=== PATIENT | female | born 1940 | race Caucasian/White ===

== ENCOUNTER 2019-05-18 17:37 | Observation (INO) | payer MEDICARE ==
[~2019-05-18] VITALS: Ht 162.6 cm; Wt 60.0 kg
[2019-05-18] MEDS ORDERED: TOPROL XL50 MG PO (17:53)
[2019-05-18] MEDS ORDERED: ALENDRONAT70 MG/75 M PO (17:54)
[2019-05-18] MEDS ORDERED: CELEXA20 MG PO (17:55)
[2019-05-18] MEDS ORDERED: ASPIRIN EC81 M1 PO (17:55)
[2019-05-18] MEDS ORDERED: SYNTHROID75 MCG PO (17:56)
[2019-05-18] MEDS ORDERED: DEXILANT60 MG (17:56)
[2019-05-18] MEDS ORDERED: PLAVIX75 MG PO (17:56)
[2019-05-18] MEDS ORDERED: COZAAR50 MG PO (17:57)
[2019-05-18] MEDS ORDERED: PRAVACHOL20 MG PO (17:58)
[2019-05-18] MEDS ORDERED: RANITIDINE HCL150 M1 PO (17:58)
[2019-05-18] MEDS ORDERED: POTASSIUM99 M1 PO (17:58)
[2019-05-18] MEDS ORDERED: TRAZODONE HCL150 MG PO (18:01)
[2019-05-18 19:02] VITALS: BP 169/73
[2019-05-18 19:06] LABS: BASOPHILS 0.3 % (0-2); HEMATOCRIT 39.1 % (36.0-48.0); IMMATURE GRANULOCYTES 0.3 % (0-5); MCH 28.3 pg (26.0-34.0); MCHC 33.2 g/dL (31.0-37.0); MCV 85.2 fL (80.0-100.0); MEAN PLATELET VOLUME 9.7 fL (7.4-10.4); MONOCYTES 10.6 % (2-11); NEUTROPHILS 60.8 % (40-80); PLATELET COUNT 201 10x3/uL (130-400); RBC 4.59 10x6/uL (4.00-5.40); RDW 13.7 % (11.5-14.5); WBC 7.7 10x3/uL (4.8-10.8)
--- NOTE | 2019-05-18 19:10 | NUR ---
PT PROVIDED SANDWICH BOX AND WATER.
[2019-05-18 19:14] LABS: APTT 29.4 SECONDS (22.8-39.4); INR 1.24 (0.85-1.17); PROTIME 15.1 SECONDS (11.6-15.0)
--- NOTE | 2019-05-18 19:20 | NUR ---
ORDERED ASA NOT GIVEN PER EDP VERBAL ORDER.
[2019-05-18 19:21] LABS: ALBUMIN 3.5 g/dL (3.4-5.0); ALKALINE PHOSPHATASE 56 U/L (46-116); ALT (SGPT) 18 U/L (10-68); CALC OSMOLALITY 279 mosm/kg (275-300); CALCIUM 8.7 mg/dL (8.5-10.1); CARBON DIOXIDE 25.1 mmol/L (21.0-32.0); CHLORIDE - SERUM 105 mmol/L (98-107); CREATININE - SERUM 0.9 mg/dL (0.6-1.3); GLUCOSE 105 mg/dL (74-106); POTASSIUM - SERUM 3.9 mmol/L (3.5-5.1); PROTEIN - SERUM 6.7 g/dL (6.4-8.2); SODIUM 141 mmol/L (136-145); UREA NITROGEN 11 mg/dL (7-18); eGFR NON AFRICAN AMERICAN 64 mL/min (90-120)
[2019-05-18 19:33] LABS: CKMB 0.9 U/L (0.0-3.6); CREATINE KINASE 64 UL (21-215); MAGNESIUM - SERUM 1.7 mg/dL (1.8-2.4)
[2019-05-18 19:34] LABS: TROPONIN-I < 0.017 ng/mL (0.000-0.060)
--- NOTE | 2019-05-18 20:15 | NUR ---
PT STATES HE NEEDS SOMETHING TO HELP HER SLEEP. STATES SHE TAKES TRAZADONE AT HOME. NOTIFY PT FUNNEL SETTER DID NOT RESTART MEDS DUE TO HR. FUNNEL SETTER, ORDERED MELATONIN. PT STATES SHE WILL START NEXT DOSE, STATES SHE WILL TRY TO GET HER SOME SLEEP WITHOUT MEDS TONIGHT. CL WITHIN REACH.
[2019-05-18 21:42] VITALS: BP 132/48; BMI 23.0
--- NOTE | 2019-05-18 22:10 | NUR ---
RECIEVED REPORT FROM GIAN ABDI. PT ARRIVED ON WHEELCHAIR. INITIAL VSS WITH SINUS DELMA. AAOX4, NO S/S OF DISTRESS. ADMISSION ASSESSMENT COMPLETED. PT IS A GOOD HX. TELEMETRY ON. FSBS 102. NO INSULIN GIVEN. PT DENIES ANY FURTHER NEEDS AT THIS TIME. WILL CPOC. CL WITHIN REACH, BED IN LOW, SR UP X2.
[2019-05-19] VITALS: BP 137/62
[2019-05-19 01:20] LABS: HEMATOCRIT 36.7 % (36.0-48.0); HEMOGLOBIN 12.2 g/dL (12-16); MCH 28.5 pg (26.0-34.0); MCHC 33.2 g/dL (31.0-37.0); MCV 85.7 fL (80.0-100.0); MEAN PLATELET VOLUME 9.8 fL (7.4-10.4); PLATELET COUNT 187 10x3/uL (130-400); RBC 4.28 10x6/uL (4.00-5.40); RDW 13.9 % (11.5-14.5); WBC 8.2 10x3/uL (4.8-10.8)
[2019-05-19 01:45] LABS: BASOPHILS 1 % (0-2); EOSINOPHILS 2 % (0-7); LYMPHOCYTES 36 % (15-50); MONOCYTES 12 % (2-11); NEUTROPHILS 49 % (40-80); PLATELET ESTIMATE NORMAL
[2019-05-19 01:46] LABS: ALBUMIN 2.9 g/dL (3.4-5.0); ALKALINE PHOSPHATASE 51 U/L (46-116); ALT (SGPT) 16 U/L (10-68); BILIRUBIN - TOTAL 0.58 mg/dL (0.2-1.3); CALC OSMOLALITY 279 mosm/kg (275-300); CALCIUM 8.3 mg/dL (8.5-10.1); CARBON DIOXIDE 27.8 mmol/L (21.0-32.0); CHLORIDE - SERUM 106 mmol/L (98-107); CKMB 0.6 U/L (0.0-3.6); CREATINE KINASE 59 UL (21-215); CREATININE - SERUM 0.9 mg/dL (0.6-1.3); GLUCOSE 96 mg/dL (74-106); POTASSIUM - SERUM 4.2 mmol/L (3.5-5.1); PRO BNP 861 pg/mL (0-450); PROTEIN - SERUM 6.1 g/dL (6.4-8.2); SODIUM 140 mmol/L (136-145); THYROID STIMULATING HORMONE 3.67 uIU/mL (0.36-3.74); TROPONIN-I < 0.017 ng/mL (0.000-0.060); eGFR NON AFRICAN AMERICAN 64 mL/min (90-120)
[2019-05-19 01:47] LABS: UREA NITROGEN 14 mg/dL (7-18)
[2019-05-19 04:00] VITALS: BP 139/56
--- NOTE | 2019-05-19 07:45 | NUR ---
A/A/OX4. DENIES ANY PAIN OR DISCOMFORT AND VOICES NO REQUESTS. ASSESSMENT COMPLETED AND WILL CONTINUE POC. BED IN LOW LOCKED POSITION AND CALL LIGHT IN REACH. DECLINES SCDS AT THIS TIME SHE IS UP AD ROSANNA
[2019-05-19 07:59] LABS: CKMB 0.7 U/L (0.0-3.6); CREATINE KINASE 68 UL (21-215)
[2019-05-19 08:00] LABS: TROPONIN-I < 0.017 ng/mL (0.000-0.060)
[2019-05-19 09:58] VITALS: BP 144/51
[2019-05-19 13:02] VITALS: Ht 162.6 cm; Wt 60.0 kg
[2019-05-19 14:34] LABS: CKMB 0.7 U/L (0.0-3.6); CREATINE KINASE 63 UL (21-215); TROPONIN-I < 0.017 ng/mL (0.000-0.060)
--- NOTE | 2019-05-19 15:31 | MORECARE ---
CASE MANAGEMENT DISCHARGE SUMMARY PATIENT: REINALDO FLEMING UNIT: [id number] ADM DATE: 05/18/19 AGE: 79 : 40 SEX: F ROOM/BED: D.2107 AUTHOR: KIMBERLYN HO PHYSICIAN: REFERRING PHYSICIAN: ABRAM ARAIZA MD DATE OF SERVICE: 05/19/19 Discharge Plan Patient Name: REINALDO FLEMING Facility: [facility]:[place] : 1940 Planned Disposition: Home Anticipated Discharge Date: 05/20/19 Discharge Date: Expected LOS: 2 Initial Reviewer: [email or web address] Initial Review Date: 05/19/2019 Generated: 05/19/19 4:30 pm Patient Name: REINALDO FLEMING Page [id number] at 1531 All edits/amendments must be made on the electronic document DICTATION DATE: 05/19/19 1530 PHLEBOTOMY SUPERVISOR: MAGALY 05/19/19 1530 RPT#: [id number] DC DATE: STATUS: ADM IN [facility] [address] [place] [address] END OF REPORT
--- NOTE | 2019-05-19 15:45 | MORECARE ---
CASE MANAGEMENT DISCHARGE SUMMARY PATIENT: REINALDO FLEMING UNIT: [id number] ADM DATE: 05/18/19 AGE: 79 : 40 SEX: F ROOM/BED: D.6842 AUTHOR: VIC,DOC PHYSICIAN: REFERRING PHYSICIAN: ABRAM ARAIZA MD DATE OF SERVICE: 05/19/19 Discharge Plan Patient Name: REINALDO FLEMING Facility: [facility]:[place] : 1940 Planned Disposition: Home Anticipated Discharge Date: 05/20/19 Discharge Date: Expected LOS: 2 Initial Reviewer: [email or web address] Initial Review Date: 05/19/2019 Generated: 05/19/19 4:45 pm Comments DCP- Discharge Planning Updated by [email or web address]: Vernon Delaney on 05/19/19 2:[address] Patient Name: REINALDO FLEMING Admission Status: ER Accout number: [id number] Admission Date: 05-18-2019 : 1940 Admission Diagnosis:BRADYCARDIA, UNSPECIFIED Attending: ABRAM ARAIZA Current LOS: 1 Anticipated DC Date: 05-20-2019 Planned Disposition: Home Primary Insurance: [employer] CHOICE PPO MCR ADVANT Discharge Planning Comments: CM MET WITH PT IN ROOM TO DISCUSS DISCHARGE PLANNING AND NEEDS. PT REPORTS LIVING AT HOME INDEPENDENTLY WITH HER DEMENTED SPOUSE WHOM SHE CARES FOR. PT HAS CANE AND STANDARD WALKER WITH NO MEDICAL EQUIPMENT PROVIDER PREFERENCE. PT HAS NO OUTSIDE SERVICES ASSISTING IN THE HOME. CM DISCUSSED AVAILABILITY OF HOME HEALTH, REHAB SERVICES AND MEDICAL EQUIPMENT.PT WILL NOT CONSIDER GOING FOR PLACEMENT IN REHAB OR LONG-TERM. PT DOES NOT WANT HOME HEALTH IN HER HOME. PT HAS WALKER AND CANE, THERAPY RECOMMENDS HOME WITH CANE. PT DENIES DISCHARGE NEEDS, REPORTS HER DAUGHTER WILL PICK HER UP FOR DISCHARGE HOME. THERAPY EVALUATION DOES NOT RECOMMEND FUTHER MEDICAL EQUIPMENT. PT DECLINES REHAB AND HOME HEALTH SERVICES. PT TO DISCHARGE HOME, FAMILY TO TRANSPORT. CM TO FOLLOW AND ASSIST IF NEEDED. Molding Machine Operator: Vernon Delaney DCPIA - Discharge Planning Initial Assessment Updated by [email or web address]: Vernon Delaney on 05/19/19 3:31 pm * Is the patient Alert and Oriented? Yes * How many steps to enter\exit or inside your home? NONE * PCP DR. DALE DIXON * Pharmacy [facility] IN [place] * Preadmission Environment Home with Family * ADLs Independent * Equipment Cane Walker * Other Equipment NO MEDICAL EQUIPMENT PROVIDER PREFERENCE * List name and contact numbers for known caregivers / representatives who currently or will assist patient after discharge: BENJAMIN FLEMING, SON, * Verbal permission to speak to the caregivers and representatives has been obtained from the patient. N/A * Community resources currently utilized None * Please name any agencies selected above. NONE * Additional services required to return to the preadmission environment? No * Can the patient safely return to the preadmission environment? Yes * Has this patient been hospitalized within the prior 30 days at any hospital? No Last DP export: 05/19/19 2:30 p Patient Name: REINALDO FLEMING Page 20303 at 1548 All edits/amendments must be made on the electronic document DICTATION DATE: 05/19/19 1545 ARTILLERY MAINTENANCE SUPERVISOR: MAGALY 05/19/19 1545 RPT#: [id number] DC DATE: STATUS: ADM IN [facility] [address] [place] [address] END OF REPORT
--- NOTE | 2019-05-19 17:13 | NUR ---
PT AWAKE AND ORIENTED. NO APPARENT DISTRESS. IS CONVERSING IN [place] WITH IN NEXT ROOM. RESP WITH EASE. MONITOR SHOWS SR @ 67 WITH OCCASIONAL PVCS. WILL CONTINUE TO MONITOR.
[2019-05-19 17:59] VITALS: BP 162/64
[2019-05-19 20:00] VITALS: BP 125/56
--- NOTE | 2019-05-19 22:34 | NUR ---
PT IN 2105 ROOM TRANSLATING BELARUSIAN TO [place]. NOTIFIED HER THAT WE HAVE A MUSEUM EXHIBIT TECHNICIAN PHONE IN 2106 ROOM AND IF WE NEED TO COMMUNICATE ANY INFO, WE WILL USE THE MUSEUM EXHIBIT TECHNICIAN PHONE. PT VOICED UNDERSTANDING AT THIS TIME.
[2019-05-20] VITALS: BP 131/56
[2019-05-20 04:00] VITALS: BP 129/60
[2019-05-20 05:05] LABS: BASOPHILS 0.3 % (0-2); EOSINOPHILS 2.4 % (0-7); HEMATOCRIT 36.9 % (36.0-48.0); HEMOGLOBIN 12.2 g/dL (12-16); IMMATURE GRANULOCYTES 0.1 % (0-5); LYMPHOCYTES 31.9 % (15-50); MCHC 33.1 g/dL (31.0-37.0); MCV 84.8 fL (80.0-100.0); MEAN PLATELET VOLUME 9.9 fL (7.4-10.4); NEUTROPHILS 53.3 % (40-80); PLATELET COUNT 202 10x3/uL (130-400); RBC 4.35 10x6/uL (4.00-5.40); RDW 13.8 % (11.5-14.5); WBC 7.2 10x3/uL (4.8-10.8)
[2019-05-20 05:22] LABS: ANION GAP 12.9 mmol/L (8-16); CALCIUM 8.3 mg/dL (8.5-10.1); CARBON DIOXIDE 24.9 mmol/L (21.0-32.0); CREATININE - SERUM 0.8 mg/dL (0.6-1.3); POTASSIUM - SERUM 3.8 mmol/L (3.5-5.1)
--- NOTE | 2019-05-20 08:51 | NUR ---
RECIEVED REPORT. PATIENT IS ALERT AND ORIENTED. SHE REPORTS THAT SHE HAS NEROPOTHY IN HER LEGS AND ESPECIALLY RIGHT LEG AND FOOT.
[2019-05-20 09:58] VITALS: BP 114/66
--- NOTE | 2019-05-20 14:49 | NUR ---
PATIENT HAS BEEN DISCHARGED. ALL DISCHARGE TEACHING HAS BEEN DONE. ALL PAPERS HAVE BEEN SIGNED. PATIENT IS LEAVING THE FLOOR BY WHEEL CHAIR WITH A NURSE. SHE IS GOING HOME WITH FAMILY. IV REMOVED FROM HER ARM WITH CATHETER INTACT. TELEMETRY REMOVED AND TURNED IN. ALL PATIENT BELONGINGS HAVE BEEN REMOVED FROM THE ROOM.
[2019-05-20 14:51] VITALS: BP 138/60
--- NOTE | 2019-05-22 10:09 | MORECARE ---
CASE MANAGEMENT DISCHARGE SUMMARY PATIENT: REINALDO FLEMING UNIT: [id number] ADM DATE: 05/18/19 AGE: 79 : 40 SEX: F ROOM/BED: D.4086 AUTHOR: VIC,DOC PHYSICIAN: REFERRING PHYSICIAN: ABRAM ARAIZA MD DATE OF SERVICE: 05/22/19 Discharge Plan Patient Name: REINALDO FLEMING Facility: [facility]:[place] : 1940 Planned Disposition: Home Anticipated Discharge Date: 05/20/19 Discharge Date: 05/20/2019 Expected LOS: 2 Initial Reviewer: [email or web address] Initial Review Date: 05/19/2019 Generated: 05/22/19 11:09 am Comments DCP- Discharge Planning Updated by [email or web address]: Vernon Delaney on 05/19/19 2:[address] Patient Name: REINALDO FLEMING Admission Status: ER Accout number: [id number] Admission Date: 05-18-2019 : 1940 Admission Diagnosis:BRADYCARDIA, UNSPECIFIED Attending: ABRAM ARAIZA Current LOS: 1 Anticipated DC Date: 05-20-2019 Planned Disposition: Home Primary Insurance: [employer] CHOICE PPO MCR ADVANT Discharge Planning Comments: CM MET WITH PT IN ROOM TO DISCUSS DISCHARGE PLANNING AND NEEDS. PT REPORTS LIVING AT HOME INDEPENDENTLY WITH HER DEMENTED SPOUSE WHOM SHE CARES FOR. PT HAS CANE AND STANDARD WALKER WITH NO MEDICAL EQUIPMENT PROVIDER PREFERENCE. PT HAS NO OUTSIDE SERVICES ASSISTING IN THE HOME. CM DISCUSSED AVAILABILITY OF HOME HEALTH, REHAB SERVICES AND MEDICAL EQUIPMENT.PT WILL NOT CONSIDER GOING FOR PLACEMENT IN REHAB OR FDC. PT DOES NOT WANT HOME HEALTH IN HER HOME. PT HAS WALKER AND CANE, THERAPY RECOMMENDS HOME WITH CANE. PT DENIES DISCHARGE NEEDS, REPORTS HER DAUGHTER WILL PICK HER UP FOR DISCHARGE HOME. THERAPY EVALUATION DOES NOT RECOMMEND FUTHER MEDICAL EQUIPMENT. PT DECLINES REHAB AND HOME HEALTH SERVICES. PT TO DISCHARGE HOME, FAMILY TO TRANSPORT. CM TO FOLLOW AND ASSIST IF NEEDED. Honeycomb Decapper: Vernon Delaney DCPIA - Discharge Planning Initial Assessment Updated by [email or web address]: Vernon Delaney on 05/19/19 3:31 pm * Is the patient Alert and Oriented? Yes * How many steps to enter\exit or inside your home? NONE * PCP DR. HUNTER CHAFFEETENA * Pharmacy [facility] IN [place] * Preadmission Environment Home with Family * ADLs Independent * Equipment Cane Walker * Other Equipment NO MEDICAL EQUIPMENT PROVIDER PREFERENCE * List name and contact numbers for known caregivers / representatives who currently or will assist patient after discharge: BENJAMIN FLEMING, SON, * Verbal permission to speak to the caregivers and representatives has been obtained from the patient. N/A * Community resources currently utilized None * Please name any agencies selected above. NONE * Additional services required to return to the preadmission environment? No * Can the patient safely return to the preadmission environment? Yes * Has this patient been hospitalized within the prior 30 days at any hospital? No Last DP export: 05/19/19 2:45 p Patient Name: REINALDO FLEMING Page 36102 at 1009 All edits/amendments must be made on the electronic document DICTATION DATE: 05/22/19 1009 ELECTRICAL CONTROLS DESIGNER: MAGALY 05/22/19 1009 RPT#: [id number] DC DATE:05/20/19 STATUS: DIS IN [facility] [address] [place] [address] END OF REPORT
== END 2019-05-20 14:52 | disposition home or self-care (01) ==
LOC: D.ER 17:37 → OBSVTIME 19:25 → D.M2 19:25 → D.ER 19:25 → D.M2 05-20 14:52
PROVIDERS: Emergency Medicine; ADMIT Internal Medicine Nephrology; ATTEND Internal Medicine Nephrology
DX: R00.1 Bradycardia, unspecified (principal); I49.3 Ventricular premature depolarization; E83.42 Hypomagnesemia; E03.9 Hypothyroidism, unspecified; E78.5 Hyperlipidemia, unspecified; I10 Essential (primary) hypertension; E11.9 Type 2 diabetes mellitus without complications; K21.9 Gastro-esophageal reflux disease without esophagitis; T44.7X5A Adverse effect of beta-adrenoreceptor antagonists, initial encounter; Z86.73 Personal history of transient ischemic attack (TIA), and cerebral infarction without residual deficits